=== PATIENT | female | born 1965 | race Caucasian/White ===

== ENCOUNTER 2017-11-14 07:39 | Inpatient (IN) | payer MEDICARE ==
[2017-11-14] MEDS ORDERED: 0.9 % SODIUM CHLORIDE 0 ML IV ONE (07:55)
[2017-11-14] MEDS: 0.9 % SODIUM CHLORIDE 1,000 ML IV SCH ×4 (07:55→20:40)
--- NOTE | 2017-11-14 07:59 | ED Physician Documentation ---
General Adult - HISTORIAN Historian: patient - HPI Chief Complaint: General Adult Additional Information: Patient has had gastric by surgery on October 27. Did not have any complications that she is aware of. Has not been eating or drinking well since that time because she has not felt hungry. Has noticed that she has had decrease urinary output. Over that last 24 hours she has been feeling weaker. Last night when getting up going up to go to the bathroom she got lightheaded and had 3 near syncopal episodes. Mouth has been dry. Patient is diabetic and her blood sugars have been running in the low 200s. Onset: days ago Timing: still present Severity: moderate Modifying Factors: feels lighheaded when she gets up. - ROS CONST: no problems. denies: fever, chills EYES/ENT: denies: sore throat CVS/RESP: denies: chest pain, shortness of breath, cough GI/: diarrhea (no blood noted). denies: abdominal pain, problems urinating, vomiting, nausea MS/SKIN/LYMPH: none NEURO/PSYCH: dizziness. denies: headache, numbness, difficulty with speech - PAST HX Past History: other Other History: diabetes Type 2 Surgeries/Procedures: other (c section x 2, carpal tunnel relase, L TKR, biposy to tongue which was normal. [place] teeth extreaction.) Immunizations: referred to PCP Allergies/Adverse Reactions: Allergies Allergy/AdvReac Type Severity Reaction Status Date / Time Penicillins Allergy Verified 11/14/17 08:08 Home Medications: Ambulatory Orders Medication Instructions Recorded Amitriptyline HCl [Elavil] 25 mg PO HS 11/14/17 Atorvastatin Calcium 40 mg PO HS 11/14/17 Benazepril HCl [Lotensin] 5 mg PO DAILY 11/14/17 FLUoxetine HCL [Prozac] 10 mg PO QD 11/14/17 Hydrocodone/Acetaminophen [[place] 1 each PO 11/14/17 7.5-325 Tablet] Insulin Glargine,Hum.rec.anlog 10 units SQ HS 11/14/17 [Lantus Solostar] Topiramate [Topiramate] 50 mg PO BID 11/14/17 - SOCIAL HX Smoking History: non-smoker Alcohol Use: none Drug Use: none - FAMILY HX Family History: No - REVIEWED ASSESSMENTS Nursing Assessment Reviewed: Yes Vitals Reviewed: Yes Progress - Progress Progress: On admission patient's BP was in the 40-50 systolic. IV started and was given a bolus of NS 1000ml. 09:19 Pulse 108, BP 86/50 Patient has been started on her second bag of fluid with potassium 10:01 Post 2 liters of fluids BP increased to 78/54, pulse decrease to105 General Adult Physical Exam - PHYSICAL EXAM GENERAL APPEARANCE: mild distress EENT: eye inspection normal, TM's nml, dry mucous membranes. No: pharyngeal erythema NECK: normal inspection, thyroid normal, supple RESPIRATORY: no resp distress, chest non-tender, breath sounds normal. No: wheezes, rales, rhonchi CVS: reg rate & rhythm, heart sounds normal, equal pulses, no murmur, no gallop , tachycardia (115) ABDOMEN: soft, no organomegaly, normal bowel sounds, no abdominal bruit, no distension, non-tender, other (incison sites clean and dry. Ecchymosis to the lower abd area. ) BACK: normal inspection SKIN: warm/dry, normal color EXTREMITIES: non-tender, normal range of motion, no evidence of injury, no edema NEURO: oriented X3, CN's nml as tested, motor nml, sensation nml, mood/affect nml Discharge Clincal Impression: Acute renal failure, Dehydration Condition: Stable Disposition: 01 HOME, SELF-CARE Decision to Admit: [id number] Date of Decison to Admit: 11/14/17 Decision Time: 10:00
[2017-11-14] MEDS ORDERED: 0.9 % SODIUM CHLORIDE 1,000 ML with POTASSIUM CHLORIDE 20 MEQ IV SCH ×6 (08:00→10:30)
[2017-11-14 08:40] LABS: BASOPHILS % 0.3 (0.0-1.5); MEAN CORPUSCULAR HEMOGLOBIN 28.9 pg (28.0-34.0); MEAN CORPUSCULAR VOLUME 85.9 fl (80.0-100.0); MONOCYTES % 2.2 % (0.0-11.0)
[2017-11-14] MEDS ORDERED: POTASSIUM CHLORIDE 20 MEQ/NS 1,000 ML IV ONE ×2 (08:51→10:10)
[2017-11-14] MEDS ORDERED: HYDROcodone /APAP 5/325 1 EACH TABLET PO PRN (11:14)
[2017-11-14] MEDS: INSULIN REGULAR, HUMAN 100 UNIT/ML 3ML VIAL SQ SCH ×2 (11:46→16:54)
[2017-11-14] MEDS: ENOXAPARIN SODIUM 30 MG/0.3 ML DISP.SYRIN SQ SCH (11:51)
[2017-11-14] MEDS: FLUoxetine HCL 10 MG CAPSULE PO SCH (11:51)
--- NOTE | 2017-11-14 12:49 | History and Physical Report ---
History of Present Illnes - History of Present Illness Reason for Visit: Weakness History of Present Illness: Patient presented to the ER after worsening weakness and 3 near syncopal episodes. She had Rou-en-Y gastric bypass on 10-26 in [place], [place]. She called her surgeon this week because she felt weak and "impacted." She went to see him on Thursday and had a swallow study type procedure and was told she was "clear." No labs or BP done at that visit. Has had poor appetite and no thirst. Went 3-4 days with eating nothing. Trying to drink water. No pain. Diarrhea. Today when she got up she felt very lightheaded and almost passed out. In the ER, found to have BP in the 50's that responded to IVF. SBP improved to 80's. BUN and Creatinine were elevated, consistent with severe dehydration. Feeling mildly better after IVF. - Past Medical History Endocrine: Diabetes (Also takes ACEI for renal protection) - Past Surgical History Past Surgical History: (x2), Other (CTR; [place] teeth), Total Knee Replacement (l), Other (Gastric bypass 10-19) - Past Family History Mother Family History: Cancer (maternal grandma with colon cancer) Father Family History: Other (OA) - Past Social History Smoke: No Alcohol: None Lives: Alone - Health Maintenance Health Maintenance: Pap Smear, Mammogram, Colonoscopy Influenza Vaccine: Current for this Influenza Season Pneumonia Vaccine: Yes Resuscitation Status: Resusciation Status Resuscitation Status Full Code Review of Systems - Review of Systems Constitutional: Weakness. negative: Fever Eyes: negative: pain ENT: negative: Ear Pain, Ear Discharge, Nose Discharge, Mouth Pain Respiratory: negative: Cough, Shortness of Breath Cardiovascular: negative: Chest Pain, Palpitations Gastrointestinal: Diarrhea. negative: Nausea, Vomiting, Abdominal Pain, Constipation Genitourinary: Other (Decreased urine output). negative: Dysuria, Frequency Musculoskeletal: negative: Neck Pain Skin: negative: Rash Neurological: Weakness - Medications/Allergies Allergies/Adverse Reactions: Allergies Allergy/AdvReac Type Severity Reaction Status Date / Time Penicillins Allergy Verified 11/14/17 08:08 Home Medications: Home Medications Amitriptyline HCl [Elavil] 25 mg PO HS 11/14/17 Atorvastatin Calcium 40 mg PO HS 11/14/17 Benazepril HCl [Lotensin] 5 mg PO DAILY 11/14/17 FLUoxetine HCL [Prozac] 10 mg PO QD 11/14/17 Hydrocodone/Acetaminophen [[place] 7.5-325 Tablet] 1 each PO 11/14/17 Insulin Glargine,Hum.rec.anlog [Lantus Solostar] 10 units SQ HS 11/14/17 Topiramate [Topiramate] 50 mg PO BID 11/14/17 Current Inpatient Medications: Current Inpatient Medications Amitriptyline HCl (Elavil) 25 mg PO [facility] Enoxaparin Sodium (Lovenox) 30 mg SQ QD [facility] Stop: 11/27/17 11:01 Last Admin: 11/14/17 11:51 Dose: 30 mg Fluoxetine HCl (Prozac) 10 mg PO QD [facility] Last Admin: 11/14/17 11:51 Dose: 10 mg Sodium Chloride (Normal Saline) 1,000 mls @ 1,000 mls/hr IV .Q1H [facility] Last Admin: 11/14/17 07:55 Dose: 1,000 mls/hr Potassium Chloride 20 meq/ (Sodium Chloride) 1,010 mls @ 1,000 mls/hr IV .Q1H [facility] Last Admin: 11/14/17 10:22 Dose: Not Given Potassium Chloride 20 meq/ (Sodium Chloride) 1,010 mls @ 1,000 mls/hr IV .Q1H [facility] Last Admin: 11/14/17 10:21 Dose: Not Given Sodium Chloride (Normal Saline) 1,000 mls @ 150 mls/hr IV Q10H [facility] Insulin Human Regular (Humulin R) 0 - 12 unit SQ CHEMX3 [facility] PRN Reason: Protocol Last Admin: 11/14/17 11:46 Dose: 4 units Miscellaneous (Chem Sticks) 1 each CHEMQID [facility] Last Admin: 11/14/17 11:25 Dose: Not Given Topiramate (Topamax) 50 mg PO BID [facility] Exam - Exam Vital Signs: Vital Signs (72 hours) 11/14/17 11/14/17 10:30 11:20 Temperature 97.4 F L Pulse Rate [ 100 H 92 H Pulse ox] Respiratory 18 18 Rate Blood Pressure 88/52 69/22 [Left Arm] O2 Sat by Pulse 99 100 Oximetry General: Alert, Oriented to Person, Oriented to Place, Oriented to Time, Cooperative, No acute distress HEENT: Atraumatic, PERRLA, EOMI, Mouth Mucous membr. moist/[place] Neck: Normal Range of Motion Lungs: Clear to auscultation, Normal air movement, Speaks full Sentences Cardiovascular: Regular rate Abdomen: Normal bowel sounds, Soft, No tenderness, Other (Inciscions healing well.) Integumentary: Normal Extremities: No edema Neurological: Normal gait, Normal speech, Strength Equal Bilat, Generalized Weakness Psych/Mental Status: Mental status NL, Mood NL, Appropriate Affect, Intact Judgment Assessment/Plan - Assessment/Plan (1) S/P gastric bypass Status: Acute Current Visit: Yes (2) Diabetes Status: Acute Current Visit: Yes Qualifiers: Diabetes mellitus type: type 2 Diabetes mellitus petroleum terminal plant operator insulin use: unspecified assisted insulin use status Diabetes mellitus complication status : without complication Qualified Code(s): E11.9 - Type 2 diabetes mellitus without complications Plan: Will start SSI with chemsticks. (3) Hypotension Status: Acute Current Visit: Yes Qualifiers: Hypotension type: hypotension due to hypovolemia Qualified Code(s): I95.89 - Other hypotension; E86.1 - Hypovolemia; E86.1 - Hypovolemia (4) Acute renal failure Status: Acute Current Visit: Yes Qualifiers: Acute renal failure type: unspecified Qualified Code(s): N17.9 - Acute kidney failure, unspecified Plan: Will admit patient for aggressive IV hydration. Watch labs carefully as well as output. K+ was low, replaced in IVF. Watch closely. (5) Dehydration Status: Acute Current Visit: Yes VTE Assessment - RISK FACTOR SCORE VTE RISK FACTOR SCORES: AGE 40-60 YEARS, ANTICIPATED BED CONFINEMENT OR IMMOBILIZATION > 24 HOURS - RISK VTE MODERATE RISK: SCORE OF 2 (RISK PROXIMAL DVT 2-4%) PROPHYAXIS NEEDED
[2017-11-14 14:42] VITALS: BMI 42.0
[2017-11-14] MEDS: AMITRIPTYLINE HCL 25 MG TABLET PO SCH (20:40)
[2017-11-14] MEDS: TOPIRAMATE 50 MG TABLET PO SCH (20:41)
[2017-11-15] MEDS: 0.9 % SODIUM CHLORIDE 1,000 ML IV SCH ×4 (01:29→23:05)
[2017-11-15 07:13] LABS: BASOPHILS % 0.3 (0.0-1.5); EOSINOPHILS % 3.3 % (0.0-6.8); MEAN CORPUSCULAR HEMOGLOBIN 28.8 pg (28.0-34.0); MEAN CORPUSCULAR VOLUME 84.8 fl (80.0-100.0); MONOCYTES % 2.9 % (0.0-11.0); NEUTROPHILS # 5.9 # k/uL (1.4-7.7)
[2017-11-15 07:32] LABS: APPEARANCE,URINE CLOUDY (CLEAR); COLOR,URINE YELLOW (YELLOW); OCCULT BLOOD,URINE 1+ (NEGATIVE); UROBILINOGEN URINE 0.2 Eu (0.2-1.0)
[2017-11-15] MEDS: INSULIN REGULAR, HUMAN 100 UNIT/ML 3ML VIAL SQ SCH ×3 (08:40→17:41)
[2017-11-15] MEDS: TOPIRAMATE 50 MG TABLET PO SCH ×2 (08:42→20:12)
[2017-11-15] MEDS: FLUoxetine HCL 10 MG CAPSULE PO SCH (11:36)
[2017-11-15] MEDS: ENOXAPARIN SODIUM 30 MG/0.3 ML DISP.SYRIN SQ SCH (11:36)
[2017-11-15] MEDS ORDERED: 0.9 % SODIUM CHLORIDE 1,000 ML IV ONE (15:16)
--- NOTE | 2017-11-15 16:43 | Inpatient Progress Note ---
Subjective - Required Recertification Statement I anticipate X number of days because-include discharge plan: 1 - Review of Systems Subjective: Patient doing some better. Did not sleep well last night so feels tired. No pain. Diarrhea - worse after she eats. STill not good appetite. No vomiting. Reports her baseline HR is 110 and BP tends to run low. Objective - Exam Vitals and I&O: Vital Signs Temp 97.3 F L 11/15/17 14:00 Pulse 118 H 11/15/17 14:00 Resp 16 11/15/17 14:00 BP 100/54 11/15/17 14:00 Pulse Ox 97 11/15/17 14:00 Intake & Output 11/14/17 11/15/17 11/15/17 23:59 11:59 23:59 Intake Total 2920 4920 600 Balance 2920 4920 600 Weight 104.326 kg Intake: IV 2650 4500 Right Antecubital 2650 4500 Oral 270 420 600 Other: Voiding Method Toilet Toilet # Voids 3 8 3 General: Alert, Oriented to Person, Oriented to Place, Oriented to Time, Cooperative, No acute distress Lungs: Clear to auscultation, Normal air movement, Speaks full Sentences Cardiovascular: Tachycardia - Results Results: Laboratory Results WBC 7.10 K/ul (4.00-12.00) 11/15/17 06:55 RBC 3.34 M/ul (3.90-5.20) L 11/15/17 06:55 Hgb 9.6 g/dL (12.0-16.0) L 11/15/17 06:55 Hct 28.4 % (34.5-46.5) L 11/15/17 06:55 MCV 84.8 fl (80.0-100.0) 11/15/17 06:55 MCH 28.8 pg (28.0-34.0) 11/15/17 06:55 MCHC 33.9 g/dL (30.0-36.0) 11/15/17 06:55 RDW 14.1 % (11.3-14.3) 11/15/17 06:55 Plt Count 374 K/mm3 (130-400) 11/15/17 06:55 Neut % (Auto) 82.4 % (39.0-79.0) H 11/15/17 06:55 Lymph % (Auto) 9.6 % (16.0-50.0) L 11/15/17 06:55 [place] % (Auto) 2.9 % (0.0-11.0) 11/15/17 06:55 Eos % (Auto) 3.3 % (0.0-6.8) 11/15/17 06:55 Baso % (Auto) 0.3 (0.0-1.5) 11/15/17 06:55 Neut # (Auto) 5.9 # k/uL (1.4-7.7) 11/15/17 06:55 Lymph # (Auto) 0.7 # k/uL (0.6-4.0) 11/15/17 06:55 [place] # (Auto) 0.2 # k/uL (0.0-0.9) 11/15/17 06:55 Eos # (Auto) 0.2 # k/uL (0.0-0.6) 11/15/17 06:55 Baso # (Auto) 0.0 # k/uL (0.0-0.5) 11/15/17 06:55 Reactive Lymphs % 1.5 % (0.0-5.0) 11/15/17 06:55 Reactive Lymphs # 0.1 # k/uL (0.0-0.8) 11/15/17 06:55 Sodium 132 mmol/L (136-145) L 11/15/17 06:55 Potassium 3.5 mmol/L (3.5-5.1) 11/15/17 06:55 Chloride 104 mmol/L (98-107) 11/15/17 06:55 Carbon Dioxide 19 mmol/L (22-30) L 11/15/17 06:55 BUN 72 mg/dL (7-17) H 11/15/17 06:55 Creatinine 2.50 mg/dL (0.52-1.04) H 11/15/17 06:55 Estimated Creat Clear 52 11/15/17 06:55 Est GFR ( Amer) 26 (60-) L 11/15/17 06:55 Est GFR (Non-Af Amer) 22 (60-) L 11/15/17 06:55 Glucose 183 mg/dL (74-106) H 11/15/17 06:55 Lactate 1.6 U/L (0.7-2.1) 11/14/17 08:18 Calcium 7.9 mg/dL (8.4-10.2) L 11/15/17 06:55 Total Bilirubin 1.4 mg/dL (0.2-1.3) H 11/14/17 08:18 AST 24 U/L (15-46) 11/14/17 08:18 ALT 40 U/L (13-69) 11/14/17 08:18 Alkaline Phosphatase 111 U/L (38-126) 11/14/17 08:18 Total Protein 7.3 g/dL (6.3-8.2) 11/14/17 08:18 Albumin 3.6 g/dL (3.5-5.0) 11/14/17 08:18 Urine Color Yellow (YELLOW) 11/14/17 08:24 Urine Appearance Cloudy (CLEAR) H 11/14/17 08:24 Urine pH 5.0 (5.0 - 8.0) 11/14/17 08:24 Ur Specific [place] >=1.030 (1.010-1.030) H 11/14/17 08:24 Urine Protein 2+ mg/dL (NEGATIVE) H 11/14/17 08:24 Urine Ketones Trace mg/dL (NEGATIVE) H 11/14/17 08:24 Urine Occult Blood 1+ (NEGATIVE) H 11/14/17 08:24 Urine Nitrite Negative (NEGATIVE) 11/14/17 08:24 Urine Bilirubin 3+ (NEGATIVE) H 11/14/17 08:24 Urine Urobilinogen 0.2 Eu (0.2-1.0) 11/14/17 08:24 Ur Leukocyte Esterase Trace (NEGATIVE) H 11/14/17 08:24 Urine Glucose Negative mg/dL (NEGATIVE) 11/14/17 08:24 Assessment/Plan - Assessment/Plan (1) S/P gastric bypass Status: Acute Current Visit: Yes (2) Diabetes Status: Acute Current Visit: Yes Qualifiers: Diabetes mellitus type: type 2 Diabetes mellitus 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 Will continue today. I discussed her poor appetite and diarrhea with her surgeon - he plans to scope her tomorrow in [place]. Will keep her NPO after midnight and plan to d/c her tomorrow. (5) Dehydration Status: Acute Current Visit: Yes
[2017-11-15] MEDS: AMITRIPTYLINE HCL 25 MG TABLET PO SCH (20:12)
[2017-11-16] MEDS: 0.9 % SODIUM CHLORIDE 1,000 ML IV SCH (05:22)
[2017-11-16 06:46] LABS: BASOPHILS % 0.3 (0.0-1.5); EOSINOPHILS % 3.7 % (0.0-6.8); MEAN CORPUSCULAR HEMOGLOBIN 28.4 pg (28.0-34.0); MEAN CORPUSCULAR VOLUME 90.4 fl (80.0-100.0); MONOCYTES % 2.1 % (0.0-11.0); NEUTROPHILS # 4.9 # k/uL (1.4-7.7)
[2017-11-16 07:00] LABS: eGFR (African) > 60; eGFR (Non-African) > 60
--- NOTE | 2017-11-16 07:40 | Discharge Summary ---
Discharge Summary - Discharge Sumary History of Present Illness: Patient presented to the ER after worsening weakness and 3 near syncopal episodes. She had Rou-en-Y gastric bypass on 10-26 in [place], [place]. She called her surgeon this week because she felt weak and "impacted." She went to see him on Thursday and had a swallow study type procedure and was told she was "clear." No labs or BP done at that visit. Has had poor appetite and no thirst. Went 3-4 days with eating nothing. Trying to drink water. No pain. Diarrhea. Today when she got up she felt very lightheaded and almost passed out. In the ER, found to have BP in the 50's that responded to IVF. SBP improved to 80's. BUN and Creatinine were elevated, consistent with severe dehydration. Feeling mildly better after IVF. Condition at Discharge: Stable Home Medications: Ambulatory Orders Medication Instructions Recorded Amitriptyline HCl [Elavil] 25 mg PO HS 11/14/17 Atorvastatin Calcium 40 mg PO HS 11/14/17 FLUoxetine HCL [Prozac] 10 mg PO QD 11/14/17 Hydrocodone/Acetaminophen [[place] 1 each PO 11/14/17 7.5-325 Tablet] Insulin Glargine,Hum.rec.anlog 10 units SQ HS 11/14/17 [Lantus Solostar] Topiramate 50 mg PO BID 11/14/17 Ondansetron HCl Rapdis [Zofran ODT] 4 mg PO Q6 PRN #20 tab 11/15/17 Consultations this Visit: None Procedures this Visit: None Allergies/Adverse Reactions: Allergies Allergy/AdvReac Type Severity Reaction Status Date / Time Penicillins Allergy Verified 11/14/17 08:08 Patient Problems: Current Active Problems Problem Status Onset Acute renal failure Acute Dehydration Acute Diabetes Acute Hypotension Acute S/P gastric bypass Acute Discharge Summary: Patient was admitted with severe dehydration and ARF. She was bolused with 2 liters of NS in the ER and then placed on continuous IVF at 150 cc/hr. She did receive one more bolus. BP stayed 80-90 until the day of discharge, they were 120's. HR stayed 110-120 until day of discharge it was back to patient baseline of 100. Cr went from 6.5 on admission to 1.1 on discharge, with sodium and BUN returning to normal. Patient still with poor appetite and diarrhea. I discussed with her surgeon, Dr. Welsh, who wants her to call his office this am to be scoped today. She will remain NPO. Ciera held this am due to BS 160 and patient NPO. She was discharged in stable condition. Hospital Course: Discharge Dx: Dehydration. ARF. Hypotension. DM. Disposition - home
[2017-11-16] MEDS: INSULIN REGULAR, HUMAN 100 UNIT/ML 3ML VIAL SQ SCH (08:30)
[2017-11-16] MEDS: TOPIRAMATE 50 MG TABLET PO SCH (08:41)
[2017-11-16 09:25] VITALS: BP 100/53
== END 2017-11-16 10:15 | disposition home or self-care (01) | DRG 684 ==
LOC: ED 07:39 → SOUTH 10:18
PROVIDERS: ADMIT Family Medicine; ATTEND Family Medicine
DX: N17.9 Acute kidney failure, unspecified (principal); E86.0 Dehydration; I95.9 Hypotension, unspecified; E11.9 Type 2 diabetes mellitus without complications
CPT/HCPCS: 36415; 80048; 80053; 81002; 83605; 85025; 87040; 87086; J1650; J1815; J3480; J3490; J7030; 87186; 96360; 96361; 96365; 99222; 99232; 99238; S1016